=== PATIENT | female | born 1960 | race African-American/Black ===

== ENCOUNTER 2017-12-18 22:48 | Emergency (ER) | payer SELFPAY ==
[~2017-12-18 22:48] MED LIST: Sodium Chloride 0.9% 100 ML BAG ONE
[2017-12-18] MEDS ORDERED: Metoclopramide HCl 10 MG/2 ML VIAL ONE (23:21)
[2017-12-18] MEDS ORDERED: Ketorolac Tromethamine 30 MG/ML VIAL ONE (23:21)
[2017-12-18] MEDS ORDERED: SUMAtriptan Succinate 6 MG/0.5 ML VIAL ONE (23:21)
--- NOTE | 2017-12-18 23:38 | CT ---
CT OF BRAIN PERFORMED WITHOUT CONTRAST ENHANCEMENT: History: Headache. FINDINGS: The ventricular and cisternal system is within normal limits. There are no signs of intracerebral hem orrhage or extraaxial fluid collections. Mastoid air cells and visualized sinuses are clear. IMPRESSION: No acute intracranial abnormalities. POS: [facility]
[2017-12-19] MEDS ORDERED: Amlodipine 5 MG TAB ONE (00:02)
== END 2017-12-19 00:10 ==
LOC: MADERS 22:48
DX: G43.909 Migraine, unspecified, not intractable, without status migrainosus (principal); I16.0 Hypertensive urgency; I11.0 Hypertensive heart disease with heart failure; I50.9 Heart failure, unspecified; J44.9 Chronic obstructive pulmonary disease, unspecified; Z79.899 Other long term (current) drug therapy
CPT/HCPCS: 70450; 96372; 96374; 96375; J1885; J2765; J3030; J7050

== ENCOUNTER 2022-01-13 15:02 | Emergency (ER) | payer MEDICARE, OTHER, SELFPAY ==
[2022-01-13 15:48] LABS: #Lymphocytes 0.9 thou/uL (1.20-3.40); #Monocytes 0.3 thou/uL (0.11-0.59); #Neutrophils 5.2 thou/uL (1.40-6.50); %Basophils 0.5 % (0.0-1.0); %Eosinophils 0.4 % (0.0-10.0); %Lymphocytes 13.8 % (21.0-51.0); %Monocytes 5.2 % (0.0-10.0); %Neutrophils 80.1 % (42.0-75.0); Anisocytosis SLIGHT = 6-15 cells (100X) (0-5/hpf); Hemoglobin 10.3 g/dL (12.0-16.0); Hypochromia SLIGHT = 6-15 cells (100X) (0-5/hpf); MDiff Complete? YES; Macrocytosis SLIGHT = 6-15 cells (100X) (0-5/hpf); Mean Corpuscular Volume 109.4 fl (78.0-98.0); Mean Platelet Volume 9.2 fL (7.4-10.4); Platelet Count 192 10x3/uL (130-400); Platelet Morphology Comment Appears Adequate; RBC Distribution Width 12.8 % (11.5-14.5); Red Blood Cell (RBC) Count 2.95 mill/uL (4.20-5.40); Stomatocytes SLIGHT = 2-5 cells (100X) (0-1/hpf); White Blood Cell (WBC) Count 6.5 10x3/uL (4.8-10.8)
[2022-01-13 15:58] LABS: ALT (SGPT) 22 U/L (8-55); AST (SGOT) 30 U/L (5-34); Alkaline Phosphatase 59 U/L (40-110); Anion Gap 16 mmol/L (10-20); BUN (Urea Nitrogen) 26 mg/dL (9.8-20.1); Bilirubin, Total 0.4 mg/dL (0.2-1.2); CK (CPK) 200 U/L (29-168); Calc. Creatinine Clearance 0 mL/min (70-130); Calcium 8.8 mg/dL (7.8-10.44); Carbon Dioxide 27 mmol/L (23-31); Chloride 104 mmol/L (98-107); Estimated GFR 31; Globulin 2.9 g/dL (2.4-3.5); Glucose 123 mg/dL (80-115); Potassium 3.5 mmol/L (3.5-5.1); Protein, Total 6.9 g/dL (5.8-8.1); Sodium 143 mmol/L (136-145)
[2022-01-13 16:09] LABS: Base Excess-Venous 0.6 mmol/L (-2.0 to 3.0); Bicarbonate (HCO3v) 27.4 mmol/L (22.0-28.0); CO2 Tension (PvCO2) 52.6 mmHg (42.0-51.0); Chloride 106 mmol/L (98-107); Hemoglobin - Calc 11.9 g/dL (12.0-16.0); Potassium 3.4 mmol/L (3.5-5.1); Sodium 145 mmol/L (138-145); vO2 Saturation-calc 75.7 % (60.0-85.0)
[2022-01-13] MEDS ORDERED: Ipratropium Bromide 2.5 ml Neb ONE ×3 (16:13→20:25)
[2022-01-13] MEDS ORDERED: Albuterol Sulfate 2.5 mg/0.5 ml Neb ONE ×2 (16:13→18:04)
[2022-01-13] MEDS ORDERED: Aspirin Chewable 81 MG TAB ONE (16:13)
[2022-01-13] MEDS ORDERED: Furosemide 40 MG/4 ML VIAL ONE (16:13)
[2022-01-13 16:16] LABS: CKMB 4.8 ng/mL (0-6.6)
[2022-01-13 17:41] LABS: SARS-CoV-2 NAA Rapid Test Not Detected (NotDetected)
[2022-01-13] MEDS ORDERED: Albuterol Sulfate 2.5 mg/3 ml Neb ONE (20:25)
[2022-01-13 21:31] LABS: Troponin I 0.134 ng/mL (< 0.028)
== END 2022-01-13 23:28 | disposition left against medical advice (07) ==
LOC: MADERS 15:02
DX: J45.901 Unspecified asthma with (acute) exacerbation (principal); B97.4 Respiratory syncytial virus as the cause of diseases classified elsewhere; I11.0 Hypertensive heart disease with heart failure; I50.9 Heart failure, unspecified; R77.8 Other specified abnormalities of plasma proteins; J44.9 Chronic obstructive pulmonary disease, unspecified; Z20.822 Contact with and (suspected) exposure to COVID-19
CPT/HCPCS: 36415; 71045; 80053; 82330; 82550; 82553; 82803; 83880; 84484; 85025; 93005; 94760; 96374; J1940; J7611